=== PATIENT | male | born 1980 | race Caucasian/White ===

== ENCOUNTER 2016-09-06 11:27 | Emergency (ER) | payer MEDICAID ==
[~2016-09-06] VITALS: Ht 190.5 cm; Wt 80.0 kg
[2016-09-06] MEDS ORDERED: SODIUM CHLORIDE 0.9% 1,000 ML IV ONE (16:13)
[2016-09-06] MEDS ORDERED: FAMOTIDINE 20MG/2ML VIAL IV STA (16:13)
[2016-09-06] MEDS ORDERED: MORPHINE SULFATE 4 MG/ML CPJ (NOT FOR IM USE) IV STA (16:13)
[2016-09-06] MEDS ORDERED: ONDANSETRON HCL 4MG/2ML VIAL IV STA (16:13)
[2016-09-06 16:40] LABS: HEMATOCRIT. 34.7 % (42.0-52.0); MEAN CORPUSCULAR VOLUME 62.5 fL (80.0-94.0); PLATELET 484 x1000/uL (130-400); RED BLOOD CELL COUNT 5.55 mill/uL (4.7-6.1); RED CELL DISTRIBUTION WIDTH 20.2 % (11.6-14.6)
[2016-09-06 16:43] LABS: PROTHROMBIN TIME 10.3 sec
[2016-09-06 16:50] LABS: CARBON DIOXIDE 27 mEq/L (21-32); CHLORIDE 105 mEq/L (98-107)
[2016-09-06 17:03] LABS: PLATELET ESTIMATE SLIGHTLY INCREASED
[2016-09-06 18:50] VITALS: BP 109/58
== END 2016-09-06 19:15 | disposition home or self-care (01) ==
LOC: ER 17:28
DX: R10.13 Epigastric pain (principal); R11.2 Nausea with vomiting, unspecified; R19.7 Diarrhea, unspecified; Z98.890 Other specified postprocedural states
CPT/HCPCS: 36415; 80053; 83690; 85025; 85610; 96361; 96374; 96375; 99284; J2270; J2405; J3490; Z7610; J7030